=== PATIENT | male | born 1955 | race Caucasian/White ===

== ENCOUNTER 2023-11-03 09:07 | Outpatient (OUT) | payer MEDICARE, OTHER, SELFPAY ==
--- NOTE | 2023-11-03 | US_ITS ---
The [address] [address] Patient Name: SONYA CEDILLO MRN: [id number] date: 1955 Sex: M Assigned Patient Location: CT Current Patient Location: CT Accession/Order Number: [id number] Exam Date: 11/03/2023 09:20 Report Date: 11/04/2023 15:44 At the request of: JO ANN SMITH Procedure: US aorta US aorta, 11/03/2023 9:20 AM EST INDICATION:Cigarette/nicotine dependence. COMPARISON: No prior retroperitoneal ultrasound available for comparison at the time of this dictation. TECHNIQUE: Real-time multi-planar ultrasonography of the aorta using grayscale imaging, supplemented by color and spectral Doppler. LIMITATIONS: Study designed for aorta and vessels. Remainder of abdomen and retroperitoneum incompletely imaged. FINDINGS: Multifocal areas of calcified plaque throughout the aorta and common iliac arteries. AORTA: Proximal: Maximum diameter = 2.6 cm. Mid: maximum diameter = 1.9 cm. Distal: Maximum diameter = 1.9 cm. Right iliac artery: Maximum diameter = 1.2 cm. Left iliac artery: Maximum diameter = 1.2 cm. US/US aorta IMPRESSION: No aortic aneurysm Electronically authenticated by: PETER BULL Date: 11/04/2023 15:44
--- NOTE | 2023-11-03 09:39 | CT_ITS ---
[address] [address] Patient Name: SONYA CEDILLO MRN: [id number] date: 1955 Sex: M Assigned Patient Location: CT Current Patient Location: CT Accession/Order Number: [id number] Exam Date: 11/03/2023 09:36 Report Date: 11/05/2023 07:47 At the request of: JO ANN SMITH Procedure: CT lung screening low-dose EXAMINATION: CT lung screening low-dose HISTORY: CIGARETTE NICOTINE DEPENDENCE WITHOUT COMPLICATION F17.210 COMPARISON: No relevant comparison available. TECHNIQUE: Axial, Coronal, and Sagittal images were created without the administration of IV contrast material. Dose reduction techniques were achieved by using automated exposure control and/or adjustment of mA and/or kV according to patient size and/or use of iterative reconstruction technique. FINDINGS: LUNGS: Soft tissue in the posterior trachea likely retained mucus. Moderate centrilobular and paraseptal emphysema with an upper lobe predominance, right greater than left. Scattered subcentimeter pulmonary nodules the largest solid nodule is in the right lower lobe measuring 6 x 4 mm axial image 104 PLEURA: No mass, effusion, or pneumothorax. VASCULATURE: No abnormality. NJ: No mass or pathologic adenopathy. MEDIASTINUM: No mass or pathologic adenopathy. CARDIAC: No enlargement or pericardial effusion CORONARY ARTERIES: Coronary calcifications are mild. AORTA: No aneurysm. Moderate atherosclerosis CHEST WALL: No mass or axillary adenopathy BONES: 70% anterior wedge compression fracture of T9. Mild anterior wedge compression fracture T11 and T12. All are age indeterminate. LIMITED ABDOMEN: No suspicious findings. Limited images of the upper abdomen. OTHER: Negative. CT/CT lung screening low-dose IMPRESSION: LUNG SCREENING: Lung-RADS Category 2- Benign Appearance or Behavior. Nodules with a very low likelihood of becoming a clinically active cancer due to size or lack of growth. 2. Continue annual screening with LDCT in 12 months. Electronically authenticated by: ARVIN GUO Date: 11/05/2023 07:47
== END 2023-11-03 09:08 | disposition home or self-care (01) ==
PROVIDERS: PCP Internal Medicine; Visit Provider Internal Medicine
DX: F17.210 Nicotine dependence, cigarettes, uncomplicated (principal); Z13.6 Encounter for screening for cardiovascular disorders
CPT/HCPCS: 71271; 76706

== ENCOUNTER 2024-06-26 15:39 | Outpatient (OUT) | payer MEDICARE, OTHER, SELFPAY ==
--- NOTE | 2024-06-26 15:43 | CT_ITS ---
[address] [address] Patient Name: SONYA CEDILLO MRN: [id number] date: 1955 Sex: M Assigned Patient Location: CT Current Patient Location: Accession/Order Number: [id number] Exam Date: 06/26/2024 16:30 Report Date: 06/27/2024 05:47 At the request of: JO ANN SMITH Procedure: CT chest w con EXAMINATION: CT chest w con HISTORY: Weight Loss, Right Lower Lobe Pulmonary Nodule COMPARISON: CT lung screening 11/03/2023 TECHNIQUE: Multi-planar CT images were obtained without and/or with IV contrast as indicated by examination type. Axial, Coronal, and Sagittal images. Dose reduction techniques were achieved by using automated exposure control and/or adjustment of mA and/or kV according to patient size and/or use of iterative reconstruction technique. FINDINGS: LUNGS: Moderate emphysematous changes. Stable 5 x 4 mm nodule within posterior right lower lobe (image 61, series 4). No new or suspicious nodules. Previously seen mucous within the trachea has cleared. PLEURA: No mass, effusion, or pneumothorax. VASCULATURE: No abnormality. NJ: No mass or adenopathy. MEDIASTINUM: No mass or adenopathy. CARDIAC: No enlargement or pericardial thickening.. Coronary artery calcifications: AORTA: No aneurysm or dissection. CHEST WALL: No mass or axillary adenopathy. BONES: T9 moderate compression fracture. LIMITED ABDOMEN: No suspicious findings Limited images of the upper abdomen. OTHER: Negative. CT/CT chest w con IMPRESSION: 1. Stable moderate emphysematous changes. 2. Stable 5 mm nodule within right lower lobe. No new or suspicious nodules. 3. Stable moderate compression fracture of T9. 4. No new or suspicious findings to account for patient's symptoms. Electronically authenticated by: CHERRY BELLA Date: 06/27/2024 05:47
[2024-06-26 16:54] LABS: Estimated GFR (African America >60 (>=60 mL/min/1.73m^2); Estimated GFR (Non-African Ame 54 (>=60 mL/min/1.73m^2)
== END 2024-06-26 15:40 | disposition home or self-care (01) ==
PROVIDERS: PCP Internal Medicine; Visit Provider Internal Medicine
DX: R63.4 Abnormal weight loss (principal); R91.1 Solitary pulmonary nodule
CPT/HCPCS: 36415; 71260; 82565; Q9967

== ENCOUNTER 2025-04-11 09:29 | Emergency (ER) | payer MEDICARE, OTHER, SELFPAY ==
[2025-04-11 09:32] VITALS: BP 171/93; PULSE 95; TEMP 36.3; O2SAT 98; BMI 17.2
--- OUTSIDE RECORDS SUMMARY | 2025-04-11 09:40 | XMS_ITS | CCD ---
Author Organization [facility] Care Team Providers Care [employer] Consultant Name Role Phone NO FAMILY PHYSICIAN Primary Care Unavailable Sylvester Coley ROLLOFF DRIVER-C Admitting UnavailSylvester Flores ROLLOFF DRIVER-C Attending Unavaila fiordaliza TINAJERO, SUGEY Admitting Unavailable LIOR, SUGEY Consulting Unavailable LIOR, SUGEY Attending Unavailable LUIS, DR CHERRY Primary Care Unavailable STRAWSER, JENNIFER Consulting Unavailable NEFCYKATHRYN Consulting Unavailable LUIS, DR CHERRY Admitting Unavailable LUIS, DR CHERRY Primary Care Unavailable LUIS, DR CHERRY Consulting Unavailable LUIS, DR CHERRY Attending Unavailable LIOR, SUGEY Admitting Unavailable LIOR, SUGEY Attending Unavailable LUIS, DR CHERRY Primary Care Unavailable ZIEBER, DR CHERRY Fisher Consulting Unavailable LIOR, SUGEY Consulting Unavailable PAY, DR JONES Attending Unavailable LUIS, DR CHERRY Primary Care Unavailable PAY, DR JONES Admitting Unavailable Lane Urena MD Unavailable [phone] Urena MD Primary Care Provider [phone] URENA Attending Unavailable LANE URENA Attending Unavailable LANE URENA Attending Unavailable LANE URENA Attending Unavailable LANE URENA Attending Unavailable Medications Current Medications Medication Drug Class(es) Dates Sig (Normalized) Sig (Original) amylase [id number] unt / lipase 03349 unt / protease [id number] unt delayed release oral capsule (2 sources) Start: 06-30-2024 End: 06-30-2025 pancrelipase, Lpx-Uqei-Hckq, (Zenpep) [id number] units capsule delayed-release particles capsule Indications: Pancreatic insufficiency (CMS/HCC) , Weight loss Take 1 capsule by mouth in the morning and 1 capsule at noon and 1 capsule in the evening. Take with meals. 90 capsule 11 06/30/2024 06/30/2025 Active lisinopril 2.5 mg oral tablet (10 sources) Angiotensin Converting Enzyme Inhibitor Start: 09-07-2023 take 1 tablet by mouth once daily lisinopril 2.5 MG tablet Indications: Proteinuria, unspecified TAKE 1 TABLET BY MOUTH EVERY DAY FOR 90 DAYS 100 tablet 3 09/07/2023 Active metFORMIN hydrochloride 1000 mg oral tablet (7 sources) Biguanide Start: 11-15-2023 take 1 tablet by mouth at mealtime metFORMIN (Glucophage) 1000 MG tablet Indications: Type 2 diabetes mellitus without complication, without long-term current use of insulin (CMS/HCC) Take 1 tablet (1,000 mg) by mouth in the morning. Take with meals. 100 tablet 3 11/15/2023 Active Problems Active Problems Problem Classification Problem Date Documented Da te Episodic/Chronic Aortic; peripheral; and visceral artery aneurysms (2 sources) Dilatation of aorta; Translations: [Aortic ectasia, unspecified site] 05-21-2024 Chronic Diabetes mellitus without complication (15 sources) Diabetes mellitus due to underlying condition without complications; Translations: [Secondary endocrine diabetes mellitus] Onset: 08-23-2022 04-26-2023 Chronic Essential hypertension (11 sources) Essential hypertension; Translations: [Essential (primary) hypertension] Onset: 11-08-2023 11-08-2023 Chronic Other fractures (1 source) Wedge compression fracture of unspecified thoracic vertebra, initial encounter for closed fracture; Translations: [WEDGE COMPRS FX UNS TV INIT CLOS FX] Onset: 08-23-2022 Episodic Other lower respiratory disease (8 sources) Nodule of lung; Translations: [Solitary pulmonary nodule] Onset: 05-21-2024 05-21-2024 Episodic Other nutritional; endocrine; and metabolic disorders (4 sources) Underweight; Translations: [Underweight] 06-30-2024 Episodic Other nutritional; endocrine; and metabolic disorders (4 sources) Weight loss; Translations: [Abnormal weight loss] 06-30-2024 Episodic Other screening for suspected conditions (not mental disorders or infectious disease) (3 sources) Encounter for screening for malignant neoplasm of prostate; Translations: [Patient encounter status] Onset: 08-23-2022 11-08-2023 Episodic Pancreatic disorders (not diabetes) (15 sources) Other specified diseases of pancreas; Translations: [Pancreatic insufficiency] Onset: 08-23-2022 3 Episodic Sprains and strains (4 sources) Sprain of ligaments of thoracic spine, initial encounter; Translations: [SPRAIN LIGAMENTS T-SPINE INITIAL] Onset: 08-18-2022 Episodic Substance-related disorders (12 sources) Nicotine dependence; Translations: [Nicotine dependence, unspecified, uncomplicated] Onset: 04-26-2023 04-26-2023 Chronic Unclassified (1 source) S63.91XA - Sprain of unspecified part of right wrist and hand, initial encounter; Translations: [S63.91XA - Sprain of unspecified part of right wrist and hand, initial encounter] Onset: 05-09-2018 Past or Other Problems Problem Classification Problem Date Documented Da te Episodic/Chronic Administrative/social admission (2 sources) Patient encounter status; Translations: [Other specified counseling] 05-21-2024 Episodic Other connective tissue disease (10 sources) Muscle pain; Translations: [Myalgia, unspecified site] Onset: 08-23-2023 08-23-2023 Episodic Residual codes; unclassified (4 sources) Procedure and treatment not carried out for other reasons; Translations: [PROC AND TX NOT CARRIED OUT OTH REASONS] Onset: 08-04-2022 Episodic Results Test Name Value Interpretation Reference Range Facility [facility] 06-26-2024 Creatinine [Mass/Vol] 1.31 mg/dL High 0.70 - 1.30 mg/dL [facility] GFR/1.73 sq M.predicted CKD-EPI (S/P/Bld) [Vol rate/Area] >60 >=60 mL/min/1.73m 2 [facility] Interpretation and review of laboratory results Abnormal [facility] EGFR-NON AF CITIZEN [place] 54 Low >=60 mL/min/1.73m 2 [facility] - Hematology and Cell countson 05-21-2024 HbA1c (Bld) [Mass fraction] 6.3 % [facility] No Panel Informationon 05-21 [facility] CBC AUTO DIFFon 08-19-2022 BASO # 0.1 103/ul Normal 0.0-0.1 [facility] Comment on above: Performed By: #### C BC #### [facility] [address] [place] [address] Dr. Denny Barahona Basophils/100 WBC (Bld) 0.6 % Normal 0.2-2.0 [facility] Comment on above: Performed By: #### C BC #### [facility] [address] [place] [address] Dr. Denny Barahona EO # 0.3 103/ul Normal 0.0-0.7 [facility] Comment on above: Performed By: #### C BC #### [facility] [address] [place] [address] Dr. Denny Barahona Eosinophils/100 WBC (Bld) 3.4 % Normal 0.9-7.0 [facility] Comment on above: Performed By: #### C BC #### [facility] [address] [place] [address] Dr. Denny Barahona Erythrocyte distribution width (RBC) [Ratio] 12.4 % Normal 11.0-15.0 [facility] Comment on above: Performed By: #### C BC #### [facility] [address] [place] [address] Dr. Denny Barahona Hematocrit (Bld) [Volume fraction] 36.8 % Critically low 42.0-54.0 [facility] Comment on above: Performed By: #### C BC #### [facility] [address] [place] [address] Dr. Denny Barahona Hemoglobin (Bld) [Mass/Vol] 12.7 g/dL Critically low 14.0-18.0 [facility] Comment on above: Performed By: #### C BC #### [facility] [address] [place] [address] Dr. Denny Barahona IG # 0.02 10e3/ul Normal 0.00-0.03 [facility] Comment on above: Performed By: #### C BC #### [facility] [address] [place] [address] Dr. Denny Barahona IG % 0.3 % Normal 0.0-0.5 [facility] Comment on above: Performed By: #### C BC #### [facility] [address] [place] [address] Dr. Denny Barahona LYMPH # 3.5 103/ul Normal 1.2-3.8 [facility] Comment on above: Performed By: #### C BC #### [facility] [address] [place] [address] Dr. Denny Barahona Lymphocytes/100 WBC (Bld) 43.9 % Normal 20.5-60.0 [facility] Comment on above: Performed By: #### C BC #### [facility] [address] [place] [address] Dr. Denny Barahona MANUAL DIFF REQ NO Normal [facility] Comment on above: Performed By: #### C BC #### [facility] [address] [place] [address] Dr. Denny Barahona MCH (RBC) [Entitic mass] 30.9 pg Normal 25.9-34.0 [facility] Comment on above: Performed By: #### C BC #### [facility] [address] [place] [address] Dr. Denny Barahona MCHC (RBC) [Mass/Vol] 34.5 g/dL Normal 29.9-35.2 [facility] Comment on above: Performed By: #### C BC #### [facility] [address] [place] [address] Dr. Denny Barahona MCV (RBC) [Entitic vol] 89.5 fL Normal 80.0-94.0 [facility] Comment on above: Performed By: #### C BC #### [facility] [address] [place] [address] Dr. Denny Barahona MONO # 0.5 103/ul Normal 0.3-0.8 [facility] Comment on above: Performed By: #### C BC #### [facility] [address] [place] [address] Dr. Denny Barahona Monocytes/100 WBC (Bld) 6.5 % Normal 1.7-12.0 [facility] Comment on above: Performed By: #### C BC #### [facility] [address] [place] [address] Dr. Denny Barahona NEUT # 3.6 103/ul Normal 1.4-6.5 [facility] Comment on above: Performed By: #### C BC #### [facility] [address] [address] [address] Denny Barahona Neutrophils/100 WBC (Bld) 45.3 % Normal 43.0-75.0 [facility] Comment on above: Performed By: #### C BC #### [facility] [address] [address] [address] Denny Barahona Platelet mean volume (Bld) [Entitic vol] 8.7 fL Critically low 9.5-13.5 [facility] Comment on above: Performed By: #### C BC #### [facility] [address] [address] [address] Denny Barahona PLT 334 103/ul Normal 150-450 [facility] Comment on above: Performed By: #### C BC #### [facility] [address] [address] [address] Denny Barahona RBC 4.11 106/ul Critically low 4.70-6.10 [facility] Comment on above: Performed By: #### C BC #### [facility] [address] [address] [address] Denny Barahona WBC 7.9 103/ul Normal 4.0-11.0 [facility] Comment on above: Performed By: #### C BC #### [facility] [address] [address] [address] Denny Barahona GLYCOHEMOGLOBIN A1Con 2021 ADA RECOMMENDATION SEE BELOW Normal [facility] Comment on above: Result Comment: ADA RECOMMENDED LIMIT 4.0 - 6.0 ADA THERAPEUTIC TARGET < 7.0 ACTION SUGGESTED > 7.0 Performed By: #### A 1C #### [facility] [address] [place] [address] Dr. Denny Barahona Glucose [Mass/Vol] 140 mg/dL Normal [facility] Comment on above: Performed By: #### A 1C #### [facility] [address] [address] [address] Denny Barahona HbA1c (Bld) [Mass fraction] 6.5 % Critically high 4.5-6.2 [facility] Comment on above: Performed By: #### A 1C #### [facility] [address] [address] [address] Denny Barahona LIPID PROFILEon 08-19-2022 CHOL-HDL RATIO NORM SEE BELOW Normal [facility] Comment on above: Result Comment: 3.3 - 4.4 LOW RISK 4.4 - 7.1 AVERAGE RISK 7.1 - 11.0 MODERATE RISK >11.0 HIGH RISK Performed By: #### L IPID, CMP #### [facility] [address] [address] [address] Denny Barahona Cholesterol [Mass/Vol] 134 mg/dL Normal <=200 [facility] Comment on above: Performed By: #### L IPID, CMP #### [facility] [address] [address] [address] Denny Barahona Cholesterol in HDL [Mass/Vol] 62 mg/dL Critically high 40-60 [facility] Comment on above: Performed By: #### L IPID, CMP #### [facility] [address] [address] [address] Denny Barahona Cholesterol in LDL [Mass/Vol] 44.8 mg/dL Normal [facility] Comment on above: Performed By: #### L IPID, CMP #### [facility] [address] [address] [address] Denny Barahona Cholesterol.total/Ch olesterol in HDL [Mass ratio] 2.2 {ratio} Normal [facility] Comment on above: Performed By: #### L IPID, CMP #### [facility] [address] [address] [address] Denny Barahona HDL NORMAL > or = 60 mg/dl - LO W CARDIOVASCULAR RISK <40 mg/dl - HIGH CARDIOVASCULAR RISK Normal [facility] Comment on above: Performed By: #### L IPID, CMP #### [facility] [address] [address] [address] Denny Barahona LDL CALC NORMAL SEE BELOW Normal [facility] Comment on above: Result Comment: <100 mg/dl OPTIMAL 100 - 129 mg/dl NEAR OR ABOVE OPTIMAL 130 - 159 mg/dl BORDERLINE HIGH 160 - 189 mg/dl HIGH >190 mg/dl VERY HIGH Performed By: #### L IPID, CMP #### [facility] [address] [place] [address] Dr. Denny Barahona Triglyceride [Mass/Vol] 136 mg/dL Normal <=150 [facility] Comment on above: Performed By: #### L IPID, CMP #### [facility] [address] [address] [address] Denny Barahona VLDL CALC 27.2 mg/dL Normal [facility] Comment on above: Performed By: #### L IPID, CMP #### [facility] [address] [address] [address] Denny Barahona MICROALB CREAT RATIO RANDOMo n 08-19-2022 mALB 12.4 mg/L Normal <=30.0 [facility] Comment on above: Performed By: #### M CRR #### [facility] [address] [place] [address] Dr. Denny Barahona MALB CR RATIO 31.1 mg/g Critically high 0.0-29.[address] [facility] Comment on above: Performed By: #### M CRR #### [facility] [address] [place] [address] Dr. Denny Barahona MALB CR RATIO RANGE SEE BELOW Normal [facility] Comment on above: Result Comment: NO M ICROALBUMINURIA 0-29 MG/G CLINICAL MICROALBUMINURIA 30-300 MG/G MACROALBUMINURIA >300 MG/G Performed By: #### M CRR #### [facility] [address] [address] [address] Denny Barahona URINE CREAT 398.76 mg/dL Critically high 20.00-300.00 [facility] Comment on above: Performed By: #### M CRR #### [facility] [address] [place] [address] Dr. Denny Barahona PROF 14(COMP METB)on 022 Albumin [Mass/Vol] 3.8 g/dL Normal 3.4-5.0 [facility] Comment on above: Performed By: #### L IPID, CMP #### [facility] [address] [address] [address] Denny Barahona Albumin/Globulin [Mass ratio] 1.1 {ratio} Normal [facility] Comment on above: Performed By: #### L IPID, CMP #### [facility] [address] [address] [address] Denny Barahona ALP [Catalytic activity/Vol] 156 U/L Critically high 46-116 [facility] Comment on above: Performed By: #### L IPID, CMP #### [facility] [address] [address] [address] Denny Barahona ALT [Catalytic activity/Vol] 25 U/L Normal 16-63 [facility] Comment on above: Performed By: #### L IPID, CMP #### [facility] [address] [address] [address] Denny Barahona Anion gap [Moles/Vol] 10.2 mmol/L Normal [facility] Comment on above: Performed By: #### L IPID, CMP #### [facility] [address] [address] [address] Denny Barahona AST [Catalytic activity/Vol] 23 U/L Normal 15-37 [facility] Comment on above: Performed By: #### L IPID, CMP #### [facility] [address] [address] [address] Denny Barahona Bilirubin [Mass/Vol] 0.4 mg/dL Normal 0.2-1.0 [facility] Comment on above: Performed By: #### L IPID, CMP #### [facility] [address] [address] [address] Denny Barahona Calcium [Mass/Vol] 9.3 mg/dL Normal 8.5-10.1 [facility] Comment on above: Performed By: #### L IPID, CMP #### [facility] [address] [address] [address] Denny Barahona Chloride [Moles/Vol] 97 mmol/L Critically low 98-107 [facility] Comment on above: Performed By: #### L IPID, CMP #### [facility] [address] [place] [address] Dr. Denny Barahona CO2 [Moles/Vol] 28.8 mmol/L Normal 21.0-32.0 [facility] Comment on above: Performed By: #### L IPID, CMP #### [facility] [address] [place] [address] Dr. Denny Barahona Creatinine [Mass/Vol] 1.12 mg/dL Normal 0.70-1.30 [facility] Comment on above: Performed By: #### L IPID, CMP #### [facility] [address] [place] [address] Dr. Denny Barahona EGFR-AF CITIZEN [place] >60 Normal >=60 [facility] Comment on above: Performed By: #### L IPID, CMP #### [facility] [address] [place] [address] Dr. Denny Barahona EGFR-NON AF CITIZEN [place] >60 Normal >=60 [facility] Comment on above: Performed By: #### L IPID, CMP #### [facility] [address] [place] [address] Dr. Denny Barahona Globulin (S) [Mass/Vol] 3.4 g/dL Normal [facility] Comment on above: Performed By: #### L IPID, CMP #### [facility] [address] [place] [address] Dr. Denny Barahona Glucose [Mass/Vol] 133 mg/dL Critically high 74-106 [facility] Comment on above: Performed By: #### L IPID, CMP #### [facility] [address] [place] [address] Dr. Denny Barahona Potassium [Moles/Vol] 4.0 mmol/L Normal 3.5-5.1 [facility] Comment on above: Performed By: #### L IPID, CMP #### [facility] [address] [place] [address] Dr. Denny Barahona Protein [Mass/Vol] 7.2 g/dL Normal 6.4-8.2 [facility] Comment on above: Performed By: #### L IPID, CMP #### [facility] [address] [address] [address] Denny Barahona Sodium [Moles/Vol] 132 mmol/L Critically low 136-145 [facility] Comment on above: Performed By: #### L IPID, CMP #### [facility] [address] [address] [address] Denny Barahona Urea nitrogen [Mass/Vol] 9.0 mg/dL Normal 7.0-18.0 [facility] Comment on above: Performed By: #### L IPID, CMP #### [facility] [address] [place] [address] Dr. Denny Barahona Urea nitrogen/Creatinine [Mass ratio] 8.0 mg/mg Normal [facility] Comment on above: Performed By: #### L IPID, CMP #### [facility] [address] [place] [address] Dr. Denny Barahona MRI TSPINE WO CONon 08-18-20 MRI TSPINE WO CON EXAMINATION: MRI TSPINE WO CON HISTORY: Thoracic back sprain COMPARISON: XR chest 08/08/2022 TECHNIQUE: Axial T2; Sagittal T1, T2, and Stir sequences. Images were performed without contrast. FINDINGS: CORD: Normal caliber, contour, and signal intensity. BONES: Anterior wedging of T9 vertebral body with loss of 25% of anterior height. Edema throughout the marrow cavity. No retropulsion of the posterior wall or appreciable central canal or foraminal narrowing. DISCS: Minimal early degenerative changes. PARASPINAL AREA: No visible mass. OTHER: Negative. IMPRESSION: 1. Acute to subacute moderate compression fracture of T9 vertebral body without causing appreciable central canal or foraminal stenosis. 2. No abnormal signal within the spinal cord. Electronically authenticated by: CHERRY BELLA Date: 2022-08-18 12:[address] [facility] XR CHEST 2 Von 08-08-2022 XR CHEST 2 V EXAM: XR CHEST 2 V HISTORY: Thoracic back sprain with rib pain on the right posteriorly for 2 weeks COMPARISON: None. TECHNIQUE: Upright AP and lateral chest x-ray FINDINGS: The heart is not enlarged and there is mild prominence of the central pulmonary vasculature. No acute infiltrate, effusion or pneumothorax is identified. There are compression deformities in the mid thoracic spine. Diffuse osteopenia is otherwise noted. IMPRESSION: No acute infiltrate or evidence of cardiac decompensation. There are compression deformities in the mid thoracic spine, of indeterminate age. Direct comparison with a previous study may be helpful in determining the chronicity of these findings. Electronically authenticated by: KATHRYN THORNTON Date: 2022-08-08 16:[address] [facility] XR RIBS RT NO CH 2Von 2021 XR RIBS RT NO CH 2V XR RIBS RT NO CH 2V INDICATION: Thoracic back sprain RIGHT RIB SERIES HISTORY: Chest wall pain. COMPARISON: None. TECHNIQUE: 6 views of the right ribs are submitted. FINDINGS: No definitive acute displaced rib fracture is identified on this examination.The visualized bony thorax is grossly unremarkable. The lungs are grossly clear. IMPRESSION: 1. No evidence of acute displaced rib fracture Electronically authenticated by: JENNIFER CORRALES Date: 2022-08-08 16:[address] [facility] Vital Signs Date Time Vital Sign Value Performing Clinician Faci lity 06-30-2024 16:07-0400 Body mass index (BMI) [Ratio] 18.54 kg/m2 Lane Urena MD Work Phone: [facility] 06-30-2024 16:07-0400 Body weight 58.[address] Urena MD Work Phone: [facility] 06-30-2024 16:07-0400 Diastolic blood pressure 95 mm[Hg] Lane Urena MD Work Phone: [facility] 06-30-2024 16:07-0400 Heart rate 83 /min Lane Urena MD Work Phone: [facility] 06-30-2024 16:07-0400 Respiratory rate 17 /min Lane Urena MD Work Phone: [facility] 06-30-2024 16:07-0400 SaO2% (BldA) [Mass fraction] 97 % Lane Urena MD Work Phone: [facility] 06-30-2024 16:07-0400 Systolic blood pressure 140 mm[Hg] Lane Urena MD Work Phone: [facility] 05-21-2024 15:43-0400 Body height 177.[address] Urena MD Work Phone: [facility] 05-21-2024 15:43-0400 Body mass index (BMI) [Ratio] 17.79 kg/m2 Lane Urena MD Work Phone: [facility] 05-21-2024 15:43-04[address] weight [address] Urean MD Work Phone: [facility] 05-21-2024 15:43-0400 Diastolic blood pressure 82 mm[Hg] Lane Urena MD Work Phone: [facility] 05-21-2024 15:43-0400 Heart rate 84 /min Lane rUena MD Work Phone: [facility] 05-21-2024 15:43-0400 SaO2% (BldA) [Mass fraction] 96 % Lane Urena MD Work Phone: [facility] 05-21-2024 15:43-0400 Systolic blood pressure 138 mm[Hg] Lane Urena MD Work Phone: [facility] 11-08-2023 15:40-0500 Body height 177.[address] Urena MD Work Phone: [facility] 11-08-2023 15:40-0500 Body mass index (BMI) [Ratio] 19.8 kg/m2 Lane Urena MD Work Phone: [facility] 11-08-2023 15:40-0500 Body weight [address] Urena MD Work Phone: [facility] 11-08-2023 15:40-0500 Diastolic blood pressure 82 mm[Hg] Lane Urena MD Work Phone: [facility] 11-08-2023 15:40-0500 Heart rate 81 /min Lane Urena MD Work Phone: [facility] 11-08-2023 15:40-0500 SaO2% (BldA) [Mass fraction] 97 % Lane Urena MD Work Phone: [facility] 11-08-2023 15:40-0500 Systolic blood pressure 138 mm[Hg] Lane Urena MD Work Phone: [facility] Encounters Encounter Date Encounter Type Care Provider Facility Start: 06-30-2024 End: 06-30-2024 Office outpatient visit [address] Urena MD Work Phone: [facility] Comment on above: Secondary endocrine diabetes mellitus (CMS/HCC) (Primary Dx); Pancreatic insufficiency (CMS/HCC); Underweight; Weight loss Start: 06-30-2024 End: 06-30-[address] URENA Not Available Start: 06-30-2024 End: 06-30-[address] Urena MD Work Phone: [facility] Start: 06-30-2024 End: 06-30-[address] Urena MD Work Phone: [facility] Start: 06-26-2024 End: 06-26-[address] Urena MD Work Phone: [facility] Unsolicited Start: 06-26-2024 End: 06-26-[address] En[address] Urena MD Work Phone: [facility] Unsolicited Start: 05-21-2024 End: 05-21-2024 Assay of hemosiderin, quant Lane Urena MD Work Phone: [facility] Work Phone: Start: 05-21-2024 End: 05-21-2024 Periodic preventive med est patient 65yrs& older Lane Urena MD Work Phone: [facility] Comment on above: Routine general medi gt examination at health care facility (Primary Dx); ACP (advance care planning); Secondary endocrine diabetes mellitus (CMS/HCC); Aortic ectasia, unspecified site (CMS/HCC); Pancreatic insufficiency (CMS/HCC); Weight loss; Underweight; Right lower lobe pulmonary nodule Start: 05-21-2024 End: 05-21-[address] URENA Not Available Start: 05-21-2024 End: 05-21-2024 Bamboo flowsromulo Urena MD Work Phone: [facility] Start: 05-21-2024 End: 05-21-2024 Bamboo flowsromulo Urena MD Work Phone: [facility] Start: 12-27-2023 End: 12-27-[address] URENA Not Available Start: 11-15-2023 End: 11-15-[address] URENA Not Available Start: 11-08-2023 End: 11-08-2023 Office outpatient visit [address] Urena MD Work Phone: [facility] Comment on above: Primary hypertension (CMS/HCC) (Primary Dx); Prostate cancer screening; Cigarette nicotine dependence without complication Start: 11-08-2023 End: 11-08-[address] URENA Not Available Start: 11-08-[address] milian MD Work Phone: [facility] Start: 11-08-[address] milian MD Work Phone: [facility] Start: 08-23-2022 Encounter for genera l adult medical examination without abnormal findings DR LANE URENA [facility] Start: 08-19-2022 End: 08-20-[address] URENA Facility:[facility] Start: 08-19-2022 End: 08-20-2022 Encounter for general adult medical examination without abnormal findings DR LANE URENA Facility:[facility] Start: 08-18-2022 End: 08-19-2022 ambulatory SUGEY TINAJERO Facility:[facility] Start: 08-08-2022 End: 08-09-2022 ambulatory SUGEY TINAJERO Facility:[facility] Start: 08-04-2022 End: 08-04-[address] KAREN TANNER Facility:[facility] Start: 05-09-2018 End: 05-09-2018 Patient encounter procedure NO FAMILY PHYSICIAN Facility:[facility] Procedures Date Procedure Procedure Detail Performing Clinician Start: 06-26-[address] Urena MD Work Phone: Start: 05-21-[address] Urena MD Work Phone: Start: 08-19-2022 PSA screening SUGEY TINAJERO Comment on above: Performed By: #### P SAD #### [facility] [address] [place] [address] Dr. Denny Barahona Plan of Treatment Date Care Activity Detail Author Start: 05-22-2026 Glaucoma screening Diabetes: R etinopathy Screening [facility] Start: 09-19-2025 Screening for malign ant neoplasm of colon [facility] Start: 05-21-2025 Medicare Annual Well ness (AWV) Medicare Annual Wellness (AWV) [facility] Start: 12-19-2024 Urine screening for protein Diabetes: Urine Protein Screening [facility] Start: 08-21-2024 Hemoglobin A1c measurement Diabetes: Hemoglobin A1C [facility] Start: 08-04-2024 End: 08-04-2024 Patient encounter procedure 08/04/2024 4:15 PM EST Office Visit [facility] [address] [place] [id number] Lane Urena MD [address] [place] [address] [facility] Start: 06-30-2024 End: 06-30-2024 Patient encounter procedure [facility] Comment on above: Arrived Start: 06-30-2024 End: 06-30-2025 Pancreatic elastase, fecal Pancreatic elastase, fecal Lab Routine Pancreatic insufficiency ([facility]/HCC) Weight loss Expected: 06/30/2024 (Approximate), Expires: 06/30/2025 [facility] Work Phone: Comment on above: Expected: 06/30/2024 (Approximate), Expires: 06/30/2025 Start: 06-23-2024 End: 06-23-2024 Patient encounter procedure 06/23/2024 3:15 PM EDT Office Visit [facility] [address] [place] [address] Lane Urena MD [address] [place] [address] [facility] Start: 05-25-2024 Influenza vaccination Influenza Vacc ine (#1) [facility] Start: 05-21-2024 End: 05-21-2024 Patient encounter procedure 05/21/2024 4:00 PM EDT Office Visit [facility] [address] [facility] [address] [place] [address] Lane Urena MD [address] [facility] [address] [place] [address] Arrived [facility] Comment on above: Arrived Start: 05-21-2024 End: 05-21-2025 Creatinine [Mass/volume] in Serum or Plasma Creatinine, Serum Lab Routine Right lower lobe pulmonary nodule Expected: 05/21/2024 (Approximate), Expires: 05/21/2025 [facility] Comment on above: Expected: 05/21/2024 (Approximate), Expires: 05/21/2025 Start: 05-21-2024 End: 05-21-2025 CT Chest W contrast IV CT chest w IV contrast Imaging Routine Weight loss Right lower lobe pulmonary nodule Expected: 05/21/2024, Expires: 05/21/2025 [facility] Work Phone: Comment on above: Expected: 05/21/2024 , Expires: 05/21/2025 Start: 05-02-2024 Medicare Annual Well ness (AWV) Medicare Annual Wellness (AWV) [facility] Start: 03-27-2024 Hemoglobin A1c measurement Diabetes: Hemoglobin A1C [facility] Start: 11-08-2023 End: 11-08-2023 Patient encounter procedure 11/08/2023 4:00 PM EST Office Visit [facility] [address] [facility] [address] [place] [address] Lane Urena MD [address] [facility] [address] [place] [address] Arrived [facility] Comment on above: Arrived Start: 11-08-2023 End: 11-08-2024 Comprehensive metabolic 2000 panel - Serum or Plasma Comprehensive metabolic panel Lab Routine Primary hypertension (CMS/HCC) Expected: 11/08/2023 (Approximate), Expires: 11/08/2024 [facility] Comment on above: Expected: 11/08/2023 (Approximate), Expires: 11/08/2024 Start: 08-19-2023 Urine screening for protein Diabetes: Urine Protein Screening [facility] Start: 05-25-2023 Influenza vaccination Influenza Vacc ine (#1) [facility] Start: 11-19-2022 Hemoglobin A1c measurement Diabetes: Hemoglobin A1C [facility] Start: 1966 Glaucoma screening Diabetes: R etinopathy Screening [facility] Start: 1962 Pneumococcal Vaccine : 65+ Years (1 of 2 - PCV) Pneumococcal Vaccine: 65+ Years (1 of 2 - PCV) [facility] Start: 1956 Screening for malign ant neoplasm of colon [facility] Prostate specific Ag [Mass/volume] in Serum or Plasma PSA Lab Routine Prostate cancer screening Ordered: 11/08/2023 [facility] Work Phone: Comment on above: Ordered: 11/08/2023 Payers Date Payer Category Payer Medicare [facility] MEDICARE ADVANTAGE [facility] MEDICARE ADVANTAGE [id number] 2021-Present [address] [place] [address] [id number] 2018 Self-pay 1959 Unknown [id number] 1959 Unknown [id number] 1959 Unknown [id number] 1959 Unknown [id number] 1956 Unknown [id number] 1956 Unknown [id number] 1956 Unknown [id number] 1956 Unknown [id number] 1956 Unknown [id number] 9 1956 Unknown [id number] 9 1956 Unknown [id number] 9 1956 Unknown [id number] 9 1956 Unknown [id number] 9 Unknown [id number] Social History Date Type Detail Facility Start: 09[facility]24-[facility] Start: 09-24-1972 History of tobacco use Cigarette Smo ker [facility] Start: 05-02-2023 Tobacco use and exposure Smokeless t obacco non-user [facility] Start: 05-02-2023 End: 12-27-2023 Alcohol intake Current drinker of alcohol (finding) [facility] Start: 05-02-2023 End: 12-27-2023 History of Social function [facility] Start: 05-02-2023 End: 12-27-2023 Tobacco use panel [facility] Start: 1955 Sex Assigned At Not on file [facility] History of Present illness Narrative 06-30-2024 Lane Urena MD - 06/30/2024 4:00 PM EDT Note Date & Type Note Facility 06-30-2024 History of Presen t illness Narrative Images from the original note were not included. Subjective Patient ID: Nadeem Mitchell is a 69 y.o. male who presents for weight loss Nadeem is today for a follow up on his weight loss. States no change has happened. He got a CT of his chest done and is scheduled with GI in September. Current Outpatient Medications on File Prior to Visit Medication Sig Dispense Refill lisinopril 2.5 MG tablet TAKE 1 TABLET BY MOUTH EVERY DAY FOR 90 DAYS 100 tablet 3 metFORMIN (Glucophage) 1000 MG tablet Take 1 tablet (1,000 mg) by mouth in the morning. Take with meals. 100 tablet 3 No current facility-administered medications on file prior to visit. I have reviewed and reconciled the history and medication list with the patient today. No Known Allergies Social History Tobacco Use Smoking status: Every Day Types: Cigarettes Start date: 1972 Smokeless tobacco: Never Substance Use Topics Alcohol use: Yes Alcohol/week: 4.0 - 8.0 standard drinks of alcohol Types: 4 - 8 Standard drinks or equivalent per week Family History Problem Relation Name Age of Onset Asthma Father Past Medical History: Diagnosis Date Pancreatitis History reviewed. No pertinent surgical history. Visit Vitals BP (!) 140/95 Pulse 83 Resp 17 Wt 129 lb 3.2 oz SpO2 97% BMI 18.54 kg/m Smoking Status Every Day BSA 1.7 m Review of Systems Objective Physical Exam Constitutional: General: He is not in acute distress. Appearance: He is normal weight. He is not ill-appearing. HENT: Head: Normocephalic. Cardiovascular: Rate and Rhythm: Normal rate and regular rhythm. Heart sounds: Normal heart sounds. No murmur heard. Pulmonary: Effort: Pulmonary effort is normal. Breath sounds: Normal breath sounds. Musculoskeletal: General: No swelling. Right lower leg: No edema. Left lower leg: No edema. Neurological: Mental Status: He is alert. Psychiatric: Mood and Affect: Mood normal. Thought Content: Thought content normal. Judgment: Judgment normal. Assessment/Plan Diagnoses and all orders for this visit: Secondary endocrine diabetes mellitus (CMS/HCC) Pancreatic insufficiency (CMS/HCC) - Pancreatic elastase, fecal; Future - pancrelipase, Mdg-Nasd-Smvs, (Zenpep) [id number] units capsule delayed-release particles capsule; Take 1 capsule by mouth in the morning and 1 capsule at noon and 1 capsule in the evening. Take with meals. Underweight Weight loss - Pancreatic elastase, fecal; Future - pancrelipase, Wus-Nnlq-Glze, (Zenpep) [id number] units capsule delayed-release particles capsule; Take 1 capsule by mouth in the morning and 1 capsule at noon and 1 capsule in the evening. Take with meals. Follow up in about 4 weeks (around 07/28/2024) for F/U med changes. documented in this encounter [facility] History of Present illness Narrative 05-21-2024 Lane Urena MD - 05/21/2024 4:00 PM EDT Note Date & Type Note Facility 05-21-2024 History of Presen t illness Narrative Images from the original note were not included. Subjective : Chief Complaint: Nadeem Mitchell is an 69 y.o. male here for an annual wellness visit. I have reviewed and reconciled the history and medication list with the patient today. Current Outpatient Medications Medication Sig Dispense Refill lisinopril 2.5 MG tablet TAKE 1 TABLET BY MOUTH EVERY DAY FOR 90 DAYS 100 tablet 3 metFORMIN (Glucophage) 1000 MG tablet Take 1 tablet (1,000 mg) by mouth in the morning. Take with meals. 100 tablet 3 No current facility-administered medications for this visit. Review of Systems Constitutional: Positive for appetite change. Negative for chills, diaphoresis, fatigue and fever. Respiratory: Negative for shortness of breath. Cardiovascular: Negative for chest pain, palpitations and leg swelling. Gastrointestinal: Negative for abdominal distention, abdominal pain, anal bleeding, blood in stool, constipation, diarrhea, nausea and vomiting. List of current healthcare providers: Patient Care Team: Lane Urena MD as PCP - General (Internal Medicine) Lane Urena MD as PCP - Peyman MA Medicare Annual Visit Over the past 2 weeks, how often have you been bothered by any of the following problems? Little interest or pleasure in doing things: Not at all Feeling down, depressed, or hopeless: Not at all Patient Health Questionnaire-2 Score: 0 Venegas Fall Risk History of Falling, Immediate or Within 3 Months: No Secondary Diagnosis: No Ambulatory Aid: Walks without aid/bedrest/nurse assist Health Risk Assessment Form Do you need help eating, bathing, using the toilet, dressing, or getting around your home?: No Can you prepare your own meals?: Yes Can you do your own housework without help?: Yes Can you shop for groceries or clothes without help?: Yes Do you exercise for about 20 minutes 3 or more days a week?: Yes How confident are you that you can control and manage most of your health problems?: Very confident Can you mange your money, credit cards and accounts, pay bills and taxes?: Yes Cognitive Screening Three Word Registration: Apple, Watch, Uyen Clock Drawing: Normal Clock - 2 Three Word Recall: All 3 words correct - 3 Total Score (0-5 Points): 5 Pain Assessment Pain Score: 1 Advance Care Planning Do you have a living will?: No Do you have a medical power of associate attorney?: No Objective : BP 138/82 Pulse 84 Ht 5' 10 Wt 124 lb SpO2 96% BMI 17.79 kg/m No results found. Physical Exam Constitutional: General: He is not in acute distress. Appearance: He is underweight. He is not ill-appearing. HENT: Head: Normocephalic. Cardiovascular: Rate and Rhythm: Normal rate and regular rhythm. Heart sounds: Normal heart sounds. No murmur heard. Pulmonary: Effort: Pulmonary effort is normal. Breath sounds: Normal breath sounds. Musculoskeletal: General: No swelling. Right lower leg: No edema. Left lower leg: No edema. Neurological: Mental Status: He is alert. Psychiatric: Mood and Affect: Mood normal. Thought Content: Thought content normal. Judgment: Judgment normal. Assessment/Plan : The following health maintenance schedule was reviewed with the patient and provided in printed form in the after visit summary: Health Maintenance Topic Date Due Pneumococcal Vaccine: 65+ Years (1 of 2 - PCV) Never done Diabetes: Retinopathy Screening Never done Diabetes: Hemoglobin A1C 03/27/2024 Medicare Annual Wellness (AWV) 05/02/2024 Influenza Vaccine (1) 05/25/2024 Diabetes: Urine Protein Screening 12/19/2024 Colorectal Cancer Screening 09/19/2025 Advance Care Planning Assessment/Plan Diagnoses and all orders for this visit: Routine general medical examination at health care facility ACP (advance care planning) Secondary endocrine diabetes mellitus (CMS/HCC) - POCT Glycated hemoglobin, total Aortic ectasia, unspecified site (CMS/HCC) Pancreatic insufficiency (CMS/HCC) - Workup as noted, if nothing is found will start Pancreatic enzymes on RTC Weight loss - Ambulatory referral to Gastroenterology; Future - CT chest w IV contrast; Future Underweight - Ambulatory referral to Gastroenterology; Future Right lower lobe pulmonary nodule - CT chest w IV contrast; Future - Creatinine, Serum; Future No orders of the defined types were placed in this encounter. Follow up in about 4 weeks (around 06/18/2024) for Test/Lab Review, Recheck. Electronically signed by Lane Urena MD on May 21, 2024 documented in this encounter [facility] History of Present illness Narrative 11-08-2023 Lane Urena MD - 11/08/2023 4:00 PM EST Note Date & Type Note Facility 11-08-2023 History of Presen t illness Narrative Subjective Patient ID: Nadeem Mitchell is a 68 y.o. male who presents for Results (US and LDCT). Pt completed testing as ordered Here to review results Denies any medical complaints He is a current smoker Current Outpatient Medications on File Prior to Visit Medication Sig Dispense Refill lisinopril 2.5 MG tablet TAKE 1 TABLET BY MOUTH EVERY DAY FOR 90 DAYS 100 tablet 3 No current facility-administered medications on file prior to visit. No Known Allergies Social History Tobacco Use Smoking status: Every Day Years: 51 Types: Cigarettes Start date: 1972 Smokeless tobacco: Never Substance Use Topics Alcohol use: Yes Alcohol/week: 4.0 - 8.0 standard drinks of alcohol Types: 4 - 8 Standard drinks or equivalent per week Family History Problem Relation Name Age of Onset Asthma Father Past Medical History: Diagnosis Date Pancreatitis History reviewed. No pertinent surgical history. Visit Vitals BP 138/82 Pulse 81 Ht 5' 10 Wt 138 lb SpO2 97% BMI 19.80 kg/m Smoking Status Every Day BSA 1.76 m Review of Systems Constitutional: Negative for appetite change, fatigue and unexpected weight change. Respiratory: Negative for cough, chest tightness and shortness of breath. Cardiovascular: Negative for chest pain, palpitations and leg swelling. Gastrointestinal: Negative for abdominal pain, nausea and vomiting. Genitourinary: Negative for difficulty urinating, hematuria and urgency. Objective Physical Exam Constitutional: General: He is not in acute distress. Appearance: He is normal weight. He is not ill-appearing. HENT: Head: Normocephalic. Cardiovascular: Rate and Rhythm: Normal rate and regular rhythm. Heart sounds: Normal heart sounds. No murmur heard. Pulmonary: Effort: Pulmonary effort is normal. Breath sounds: Normal breath sounds. Musculoskeletal: General: No swelling. Right lower leg: No edema. Left lower leg: No edema. Neurological: Mental Status: He is alert. Psychiatric: Mood and Affect: Mood normal. Thought Content: Thought content normal. Judgment: Judgment normal. Assessment/Plan Diagnoses and all orders for this visit: Primary hypertension (CMS/HCC) - Comprehensive metabolic panel; Future Prostate cancer screening - PSA Cigarette nicotine dependence without complication - LDCT Lungs discussed. Category 2. Repeat in 1 year. Advised to stop smoking. Follow up in about 6 months (around 05/08/2024) for Wellness. documented in this encounter [facility] Evaluation note Note Date & Type Note Facility Evaluation note Diagnosis Primary hypertension (CMS/HCC)- Primary Unspecified essential hypertension Prostate cancer screening Special screening for malignant neoplasm of prostate Cigarette nicotine dependence without complication documented in this encounter [facility] Evaluation note Note Date & Type Note Facility Evaluation note Diagnosis Secondary endocrine diabetes mellitus (CMS/HCC)- Primary Pancreatic insufficiency (CMS/HCC) Other specified disease of pancreas Underweight Weight loss Loss of weight documented in this encounter [facility] Evaluation note Note Date & Type Note Facility Evaluation note Diagnosis Routine general medical examination at health care facility- Primary Routine general medical examination at a health care facility ACP (advance care planning) Other specified counseling Secondary endocrine diabetes mellitus (CMS/HCC) Aortic ectasia, unspecified site (CMS/HCC) Aortic ectasia, unspecified site Pancreatic insufficiency (CMS/HCC) Other specified disease of pancreas Weight loss Loss of weight Underweight Right lower lobe pulmonary nodule documented in this encounter [facility] Summary Purpose Family History No Family History Records FoundNo Family History Records FoundNo Family History Records Found Advance Directives No Advanced Directives Records FoundNo Advanced Directives Records FoundNo Advanced Directives Records Found Reason for Referral Specialty Diagnoses / Procedures Referred By Contac t Referred To Contact Radiology Diagnoses Weight loss Right lower lobe pulmonary nodule Procedures CT chest w IV contrast Lane Urena MD [address] [facility] [address] [place] [address] Referral ID Status Reason Start Date Expiration Date V isits Requested Visits Authorized [id number] Pending Review 05/21/2024 11/17/2024 1 1 Specialty Diagnoses / Procedures Referred By Contaidan t Referred To Contact Gastroenterology Diagnoses Weight loss Underweight Procedures [place] OFFICE/OUTPATIENT NEW HIGH MDM [address] Urena MD [address] [facility] [address] [place] [address] Referral ID Status Reason Start Date Expiration Date Visits Requested Visits Authorized [id number] Pending Review Specialty Services Required 05/21/2024 11/17/2024 1 1 Additional Source Comments (unrecognized sect ion and content) No Status Records FoundNo Status Records FoundNo Status Records Found INFORMATION SOURCE (unrecogn ized section and content) DATE CREATED AUTHOR 12/03/2018 [facility] DATE CREATED AUTHOR AUTHOR'S ORGANIZ ATION 11/08/2022 [facility] pital DATE CREATED AUTHOR AUTHOR'S ORGANIZ ATION 07/02/2024 [facility] Care Teams (unrecognized sec tion and content) [employer] Consultant Relationship Specialty Start Date End Date Lane Urena MD [address] [facility] [address] [place] [address] PCP - Peyman OLVERA 09/24/21 Lane Urena MD [address] [facility] [address] [place] [address] PCP - General Internal Medicine 01/30/23 [employer] Consult[employer] Relationship Specialty Start Date End Date Lane Urena MD [address] [facility] [address] [place] [address] PCP - Peyman OLVERA 09/24/21 Lane Urena MD [address] [facility] [address] [place] [address] PCP - General Internal Medicine 01/30/23 [employer] Consultant Relationship Specialty Start Date End Date Lane Urena MD [address] [facility] [address] [place] [address] PCP - Peyman OLVERA 09/24/21 Lane Urena MD [address] [place] [address] PCP - General Internal Medicine 01/30/23 [employer] Consultant Relationship Specialty Start Date End Date Lane Urena MD [address] [place] [address] PCP - Peyman OLVERA 09/24/21 Lane Urena MD [address] [place] [address] PCP - General Internal Medicine 01/30/23 [employer] Consult[employer] Relationship Specialty Start Date End Date Lane Urena MD [address] [place] [address] PCP - Peyman OLVERA 09/24/21 Lane Urena MD [address] [place] [address] PCP - General Internal Medicine 01/30/23 Reason for Visit (unrecogniz ed section and content) Reason Comments Results US and LDCT Reason Comments Medicare Annual Wellness Visit Subsequen t FOR RECORDS PERTAINING TO PATIENTS WHO ARE OR HAVE BEEN ENROLLED IN A CHEMICAL DEPENDENCY/SUBSTANCEABUSE PROGRAM, SOME INFORMATION MAY BE OMITTED. This clinical summary was aggregated from multiple sources. Caution should be exercised in using it in the provision of clinical care. This summary normalizes information from multiple sources, and as a consequence, information in this document may materially change the coding, format and clinical context of patient data. In addition, data may be omitted in some cases. CLINICAL DECISIONS SHOULD BE BASED ON THE PRIMARY CLINICAL RECORDS. [employer] provides no warranty or guarantee of the accuracy or completeness of information in this document.
--- NOTE | 2025-04-11 09:45 | XR_ITS ---
The [address] [address] Patient Name: SONYA CEDILLO MRN: [id number] date: 1955 Sex: M Assigned Patient Location: ER Current Patient Location: ER Accession/Order Number: [id number] Exam Date: 04/11/2025 10:42 Report Date: 04/11/2025 10:46 At the request of: RENETTA TAPIA MD Procedure: XR thoracic spine 2V THORACIC SPINE - - 3 views CLINICAL HISTORY: pain COMPARISON: MRI FINDINGS: Osteopenia. Similar appearance of the T9 compression fracture. There is minimal inferior endplate irregularity involving T11 and mild loss of height T10 probably similar to the prior MRI. Remaining thoracic vertebral heights are grossly preserved. Mild accentuation lower thoracic spine due to the compression deformities. Aortic knob calcification. Visualized lungs are clear. XR/XR thoracic spine 2V IMPRESSION: Osteopenia. Similar appearance of the compression deformities, greatest at T9 Impression dictated by: Martin Garrett M.D. 04/11/2025 10:46 AM Dictation Location: [place] [address] Electronically authenticated by: [id number] Y Date: 04/11/2025 10:46
--- NOTE | 2025-04-11 09:45 | XR_ITS ---
[address] [address] Patient Name: SONYA CEDILLO MRN: [id number] date: 1955 Sex: M Assigned Patient Location: ER Current Patient Location: ER Accession/Order Number: [id number] Exam Date: 04/11/2025 10:47 Report Date: 04/11/2025 10:49 At the request of: RENETTA TAPIA MD Procedure: XR lumbar spine 2-3V 2 views lumbar spine INDICATION: Pain COMPARISON: None FINDINGS: Osteopenia. Alignment preserved. Mild slight L5 noted possibly chronic. Mild facet arthropathy notably L3-S1. Calcific densities left upper quadrant. Question right renal calcific density. XR/XR lumbar spine 2-3V IMPRESSION: Mild degenerative changes of the lower lumbar facet joints. Likely chronic deformity involving L5. Negative acute fracture or traumatic malalignment Impression dictated by: Martin Garrett M.D. 04/11/2025 10:49 AM Dictation Location: [place] [address] Electronically authenticated by: [id number] Y Date: 04/11/2025 10:49
--- NOTE | 2025-04-11 09:47 | ED.BACK1 ---
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 is coming to the ER after he had been having back pain for the last week, he mentioned that he have a history of chronic back pain after an injury a year ago, although he was not specific about it but I did show in the medical record that the patient have a compression fraction before, 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 The patient denies any numbness or tingling down his legs the pain is fixed in the lower back and is associated only with movement Related Data Home Medications ?Medication ?Instructions ?Recorded ?Confirmed lisinopril 2.5 mg tablet 2.5 mg PO DAILY 04/11/25 04/11/25 metformin 1,000 mg tablet 1,000 mg PO DAILY 04/11/25 04/11/25 Previous Rx's ?Medication ?Instructions ?Recorded diclofenac sodium 50 mg 50 mg PO Q12H PRN pain #20 tabs 04/11/25 tablet,delayed release orphenadrine citrate 100 mg 100 mg PO BID PRN muscle spasm #20 04/11/25 tablet,extended release tabs Allergies Allergy/AdvReac Type Severity Reaction Status Date / Time No Known Drug Allergies Allergy Verified 04/11/25 09:32 Opioid HPI Opioid Management Most Recent Opioid Data: Last Pain Scale 8 Today, 09:50 Review of Systems ROS Status of ROS 10 or more systems reviewed and unremarkable except as noted in history and below PFSH PFSH Social History Little interest or pleasure in doing things: not at all Feeling down, depressed, or hopeless: not at all Exam Narrative Exam Narrative: Nurses notes and vital signs reviewed and patient is not hypoxic. General: Well-appearing and in no apparent distress. Skin: Warm, dry, no pallor noted. No rash. Head: Normocephalic, atraumatic. Neck: Supple, non-tender. Eye: Pupils are equal, round and EOMI. No scleral icterus. Ears, Nose, Mouth, and Throat: TM are clear, no nasal mucosal hypertrophy. Oral mucosa is moist, no posterior oropharynx erythema, uvula is mid-line Cardiovascular: Regular Rate and Rhythm without murmur, gallop or rub. Respiratory: No accessory muscle use or respiratory distress. Lungs are clear to auscultation, no wheezing, rales or rhonchi Chest Wall: no tenderness Back: No midline thoracic or lumbar vertebral tenderness. Patient have a paraspinal muscle tenderness at the lower thoracic and upper lumbar level Musculoskeletal: normal ROM, no calf or popliteal tenderness, no lower extremity edema/swelling GI: Abdomen is soft, non-distended. Normal bowel sounds. No masses appreciated. No tenderness to palpation. No rebound, guarding, or rigidity noted. Neurological: A&O x4. No cranial nerve dysfunction observed. No truncal ataxia. Moves all extremities. Sensation intact. Psychiatric: Cooperative and interactive. Normal mood and affect. Constitutional Vital Signs, click to edit/add: Last Vital Signs Temp 97.4 F L 04/11/25 09:32 Pulse 72 04/11/25 10:58 Resp 04/11/25 10:58 BP 155/95 H 04/11/25 10:58 Pulse Ox 99 04/11/25 10:58 O2 Del Method Room Air 04/11/25 09:32 Course Vital Signs Vital signs: Vital Signs Temperature 97.4 F L 04/11/25 09:32 Pulse Rate 95 H 04/11/25 09:32 Respiratory Rate 18 04/11/25 09:32 Blood Pressure 171/93 H 04/11/25 09:32 Pulse Oximetry 98 04/11/25 09:32 Oxygen Delivery Method Room Air 04/11/25 09:32 Temperature 97.4 F L 04/11/25 09:32 Pulse Rate 72 04/11/25 10:58 Respiratory Rate 04/11/25 10:58 Blood Pressure 155/95 H 04/11/25 10:58 Pulse Oximetry 99 04/11/25 10:58 Oxygen Delivery Method Room Air 04/11/25 09:32 MDM - Back Pain/Injury MDM Narrative Medical decision making narrative: X-ray of the lumbar as well as x-ray thoracic spine showed no acute significant pathology the patient does have a history of compression fracture and osteopenia I discussed the patient history with him and the finding on the x-ray and I explained to him that with his history osteopenia he had to be cautious and follow-up with his primary care doctor for further evaluation of that Patient was given Toradol and Norflex in the ER after which he was feeling much better He was discharged home with Voltaren and Norflex and he had a blood workup here showing no acute significant pathology Patient blood pressure was found to be elevated initially but with pain medication it was getting better The patient is to follow up with primary care physician in next 2-3 days or to return to the emergency department should any of the signs or symptoms worsen or new symptoms develop. The patient agrees with the following Diagnosis and Treatment plan and the patient will be discharged home. Lab Data Labs: Lab Results 04/11/25 Range/Units 09:55 WBC 9.4 (4.0-11.0) 10^3/uL RBC 3.77 L (4.70-6.10) 10^6/uL Hgb 11.8 L (14.0-18.0) g/dL Hct 34.5 L (42.0-54.0) % MCV 91.5 (80.0-94.0) fL MCH 31.3 (25.9-34.0) pg MCHC 34.2 (29.9-35.2) g/dL RDW 12.1 (11.0-15.0) % Plt Count 335 (150-450) 10^3/uL MPV 9.0 L (9.5-13.5) fL Neut % (Auto) 70.0 (43.0-75.0) % Lymph % (Auto) 23.7 (20.5-60.0) % [place] % (Auto) 4.3 (1.7-12.0) % Eos % (Auto) 1.1 (0.9-7.0) % Baso % (Auto) 0.6 (0.2-2.0) % Neut # (Auto) 6.5 (1.4-6.5) 10^3/uL Lymph # (Auto) 2.2 (1.2-3.8) 10^3/uL [place] # (Auto) 0.4 (0.3-0.8) 10^3/uL Eos # (Auto) 0.1 (0.0-0.7) 10^3/uL Baso # (Auto) 0.1 (0.0-0.1) 10^3/uL Abs Immat Gran (auto) 0.03 (0.00-0.03) 10^3/uL Imm/Tot Granulo (auto) 0.3 (0.0-0.5) % Sodium 136 (136-145) mmol/L Potassium 4.3 (3.5-5.1) mmol/L Chloride 98 (98-107) mmol/L Carbon Dioxide 27.8 (21.0-32.0) mmol/L Anion Gap 14.5 BUN 13.0 (7.0-18.0) mg/dL Creatinine 1.25 (0.70-1.30) mg/dL Est GFR ( Amer) >60 (>=60 mL/min/1.73m^2) Est GFR (Non-Af Amer) 57 L (>=60 mL/min/1.73m^2) BUN/Creatinine Ratio 10.4 Glucose 178 H (74-106) mg/dL Calcium 9.2 (8.5-10.1) mg/dL Total Bilirubin 0.3 (0.2-1.0) mg/dL AST 20 (15-37) U/L ALT 25 (16-63) U/L Alkaline Phosphatase 126 H (46-116) U/L Total Protein 6.8 (6.4-8.2) g/dL Albumin 3.6 (3.4-5.0) g/dL Globulin 3.2 g/dL Albumin/Globulin Ratio 1.1 Discharge Plan Discharge Chief Complaint: Back Pain/Injury Clinical Impression: Back pain, Osteopenia, Elevated blood pressure reading Patient Disposition: Home, Self-Care Time of Disposition Decision: 11:11 Condition: Good Mode of Transportation: Private Vehicle Prescriptions / Home Meds: New diclofenac sodium 50 mg tablet,delayed release (DR/EC) 50 mg PO Q12H PRN (Reason: pain) Qty: 20 0RF orphenadrine citrate 100 mg tablet extended release 100 mg PO BID PRN (Reason: muscle spasm) Qty: 20 0RF No Action lisinopril 2.5 mg tablet 2.5 mg PO DAILY metformin 1,000 mg tablet 1,000 mg PO DAILY Print Language: Mohawk Instructions: Back Pain (ED), Bone Density Test (DC) Referrals: JO ANN SMITH [Primary Care Provider, Internal Medicine] - 1 week Discharge Date/Time: 04/11/25 11:19
[2025-04-11] MEDS: ORPHENADRINE 60 MG/2 ML VIAL IV (09:59)
[2025-04-11 10:01] LABS: Hematocrit 34.5 % (42.0-54.0); Hemoglobin 11.8 g/dL (14.0-18.0); Immature Granulocytes Abs Auto 0.03 10^3/uL (0.00-0.03); Immature Granulocytes Pct Auto 0.3 % (0.0-0.5); Lymphocytes Absolute Auto 2.2 10^3/uL (1.2-3.8); Mean Corpuscular HGB Conc 34.2 g/dL (29.9-35.2); Mean Corpuscular Hemoglobin 31.3 pg (25.9-34.0); Mean Corpuscular Volume 91.5 fL (80.0-94.0); Platelet Count 335 10^3/uL (150-450); Red Blood Count 3.77 10^6/uL (4.70-6.10); White Blood Count 9.4 10^3/uL (4.0-11.0)
[2025-04-11 10:19] LABS: Alanine Aminotransferase 25 U/L (16-63); Albumin Globulin Ratio 1.1; Albumin Level 3.6 g/dL (3.4-5.0); Alkaline Phosphatase 126 U/L (46-116); Anion Gap 14.5; Aspartate Amino Transferase 20 U/L (15-37); Blood Urea Nitrogen 13.0 mg/dL (7.0-18.0); Calcium 9.2 mg/dL (8.5-10.1); Carbon Dioxide 27.8 mmol/L (21.0-32.0); Chloride 98 mmol/L (98-107); Estimated GFR (African America >60 (>=60 mL/min/1.73m^2); Estimated GFR (Non-African Ame 57 (>=60 mL/min/1.73m^2); Globulin 3.2 g/dL; Glucose 178 mg/dL (74-106); Potassium 4.3 mmol/L (3.5-5.1); Sodium 136 mmol/L (136-145); Total Protein 6.8 g/dL (6.4-8.2)
[2025-04-11] MEDS: KETOROLAC TROMETHAMINE 30 MG/ML VIAL IVP (10:37)
[2025-04-11 10:58] VITALS: BP 155/95; PULSE 72; O2SAT 99
== END 2025-04-11 11:19 | disposition home or self-care (01) ==
PROVIDERS: Emergency Provider Emergency Medicine; PCP Internal Medicine
DX: M54.50 Low back pain, unspecified (principal); R03.0 Elevated blood-pressure reading, without diagnosis of hypertension; R73.03 Prediabetes; Z79.84 Long term (current) use of oral hypoglycemic drugs; M85.80 Other specified disorders of bone density and structure, unspecified site
CPT/HCPCS: 36415; 72070; 72100; 80053; 85025; 96374; 96375; 99284; J1885; J2360